=== PATIENT | female | born 1930 | race Caucasian/White ===

== ENCOUNTER → 2016-12-19 | Day surgery (SDC) | payer MEDICARE ==
[~2016-12-19] MED LIST: ASPI1TAB69 PO; BUPIVACAINE LIPOSOME PF 1.3% 20 ML VIAL ONE; CALC1TAB55 PO; CENTTAB PO; CHOL1TAB16 IV; FISH500C PO; FLUR15CA13 PO; FURO20TA PO; LACTATED RINGER'S 1000 ML INJ 1,000 ML ONE; LIDOCAINE 1%/EPINEPHrine 1:100,000 SOLN 20 ML VIAL ONE; MIDAZOLAM HCL 2 MG/2 ML VIAL ONE; NAPR500T PO; NORT10CA PO; OMEP40CA2 PO; PRAV40TA PO; PROPOFOL 500 MG/50 ML BTL IV ONE; REST0.05 EACH EYE; TIMO0.2517 LEFT EYE; TRAM50TA PO; ceFAZolin 2 GM PREMIX 50 ML ONE
--- NOTE | 2016-12-19 12:57 | TN ---
cc: GLORIA MILNER M.D.,LILAI Smallwood MD DATE OF SURGERY 12/19/2016 PREOPERATIVE DIAGNOSIS Right breast atypical ductal hyperplasia. POSTOPERATIVE DIAGNOSIS Right breast atypical ductal hyperplasia. PROCEDURE Right breast needle-localized lumpectomy, hidden scar technique. SURGEON Dr. Zander Marie ANESTHESIA General INDICATIONS This is an 86-year-old woman who had a density seen on mammography that has slightly changed from previous years. She had an ultrasound and ultrasound-guided core biopsy and pathology demonstrated atypical ductal hyperplasia. Recommendations were made for needle-localized lumpectomy. INTRAOPERATIVE FINDINGS Successful removal of an area of concern as confirmed on specimen mammography by Dr. Resendiz. Specimen sent to pathology with a short stitch superior anterior and a long stitch lateral posterior. ESTIMATED BLOOD LOSS Less than 5 mL DESCRIPTION OF PROCEDURE IN DETAIL The patient identified as Brittney Galdamez, taken to the operating room, placed in a supine position. She had undergone right breast needle localization. Sequential compression devices were placed on bilateral lower extremities. Following IV sedation by Anesthesia, the right breast was prepped and draped in the usual sterile fashion with Betadine. A time-out procedure was performed. Following completion of the time-out procedure to everyone's satisfaction within the room, a proposed inferior periareolar incision was made with a marking pen and infiltrated with 1% lidocaine with epinephrine. Incision was carried out with scalpel and hemostasis controlled with electrocautery. Dissection continued posteriorly removing a generous portion of normal-appearing breast tissue around the localization needle tip. The localization needle was divided at the level of the skin, brought into the surgical wound, and the specimen removed in its entirety and marked with silk suture and sent for imaging and then pathology with the above-mentioned findings. The wound was irrigated copiously with saline. Small bleeding points were controlled with electrocautery. Once the wound was assured to be dry, oncoplastic technique was used to decrease the size of the lumpectomy cavity using 3-0 Vicryl sutures. Local anesthetic was placed within the residual cavity and the wound was closed in two layers with 3-0 Vicryl and 4-0 Monocryl. Dressing was applied, Mastisol, half-inch brown Steri-Strips, gauze and Tegaderm. The patient tolerated the procedure without apparent complication. Sponge, needle and instrument counts were correct at the end of the case. MD STEPHEN Stephens/CALVIN /12:45 PM /12:53 PM
== END | disposition home or self-care (01) ==
LOC: ESDC 08:30
PROVIDERS: ATTEND Surgery Trauma Surgery
DX: N60.91 Unspecified benign mammary dysplasia of right breast (principal)
CPT/HCPCS: 00400; 19125; 88307; J0690; J2250; J3010; J7120; C9290

== ENCOUNTER 2018-03-23 12:08 | Inpatient (IN) ==
--- NOTE | 2018-03-18 10:21 | MH ---
cc: Cl Patterson MD DATE OF ADMISSION: 03/23/2018 DATE OF ADMISSION: 03/23/2018 ADMITTING DIAGNOSIS: Osteoarthritic degeneration with valgus deformity, left knee. REASON FOR ADMISSION: Now being admitted for left total knee arthroplasty. HISTORY OF PRESENT ILLNESS: This 87-year-old female is being admitted today for left total knee arthroplasty due to severe painful osteoarthritic degeneration with deformity, left knee. She has been cleared by Primary Care, Cardiology and Urology for her surgery. OTHER PAST HISTORY: Patient has had multiple surgeries on the abdomen with mesh and on her left leg for which she has had veins removed and now has lymphedema, which has been treated. She has a history of anxiety disorder. MEDICATIONS: Currently, she takes acetaminophen, alprazolam, lisinopril, nitrofurantoin, nortriptyline, omeprazole, sertraline, timolol, tramadol, has multiple eyedrops for her eyes. PAST SURGICAL HISTORY: He had hernia repairs, right knee replacement and hip replacement in the past. REVIEW OF SYSTEMS: Noncontributory. FAMILY HISTORY: Noncontributory. SOCIAL HISTORY: She does not smoke or drink. ALLERGIES: ALLERGIC TO VOLTAREN. PHYSICAL EXAMINATION: GENERAL: We find an 87-year-old female, well-developed, well-nourished, and oriented x3, complaining of pain in her left knee. VITAL SIGNS: Blood pressure 136/80, pulse 70 and regular, respirations 18, temperature 98.2, pulse oximetry 96% on room air. HEENT: Eyes PERRLA, EOMI. Ears, nose and mouth clear. NECK: Supple. LUNGS: Clear. HEART: Regular rate. ABDOMEN: Soft, positive bowel sounds, nontender. EXTREMITIES: Reveal her left knee to have 10 degrees valgus deformity, lymphedema. Neurovascularly intact to her toes. IMPRESSION: Severe painful osteoarthritic degeneration, left knee, lymphedema and valgus deformity. PLAN: Admission for left total knee arthroplasty today. The patient understands the procedure well, the risks involved such as the possibility of loss of life, limb, paralysis, infection, phlebitis, dislocation, need for revision, blood transfusion and wants to proceed with surgery. Plans on going to rehabilitation center after surgery for postoperative care. J. MD MATT Amezcua/LAYA , 10:06 AM , 10:20 AM
[~2018-03-23 12:08] MED LIST changes: -ASPI1TAB69 PO; -BUPIVACAINE LIPOSOME PF 1.3% 20 ML VIAL ONE; -CALC1TAB55 PO; -CENTTAB PO; -CHOL1TAB16 IV; -FISH500C PO; -FLUR15CA13 PO; -FURO20TA PO; -LACTATED RINGER'S 1000 ML INJ 1,000 ML ONE; -LIDOCAINE 1%/EPINEPHrine 1:100,000 SOLN 20 ML VIAL ONE; -MIDAZOLAM HCL 2 MG/2 ML VIAL ONE; -NAPR500T PO; -NORT10CA PO; -OMEP40CA2 PO; -PRAV40TA PO; -PROPOFOL 500 MG/50 ML BTL IV ONE; +Phenylephrine/NS 1000 MCG/10ML Syringe IV.PUSH ONE; -REST0.05 EACH EYE; -TIMO0.2517 LEFT EYE; -TRAM50TA PO; -ceFAZolin 2 GM PREMIX 50 ML ONE
[2018-03-23] MEDS ORDERED: Chlorhexidine Gluconate 2% 1 Pack (2 Cloths) TOPICAL SCH (13:15)
[2018-03-23] MEDS ORDERED: Metoprolol Tartrate 25 MG Tablet PO SCH (13:15)
[2018-03-23] MEDS ORDERED: Dexamethasone PF Inj 10 MG/ML Vial ONE (13:26)
[2018-03-23] MEDS ORDERED: Bupivacaine/Dextrose 0.75% Inj 2 ML Ampul ONE (13:26)
[2018-03-23] MEDS ORDERED: Bupivacaine PF 0.25% Inj 30 ML Vial ONE (13:27)
[2018-03-23] MEDS ORDERED: Chlorhexidine 4% Topical 120 APPLIC/120 ML Bottle TOPICAL SCH (13:30)
[2018-03-23] MEDS ORDERED: ceFAZolin 2 GM Premix Inj 2 GM/50 ML PIGGYBACK IV.SIG SCH (13:30)
[2018-03-23] MEDS ORDERED: Dexamethasone Inj 20 MG/5 ML Vial IV.SIG SCH (13:30)
[2018-03-23] MEDS ORDERED: Vancomycin Inj 1 GM/200 ML PIGGYBACK IV.SIG SCH (13:30)
[2018-03-23] MEDS ORDERED: Propofol Inj 500 MG/50 ML Vial ONE (13:41)
[2018-03-23] MEDS ORDERED: Sodium Chlor 0.9% Inj 500 ML IV.SIG SCH (14:00)
[2018-03-23] MEDS ORDERED: TRANEXAMIC ACID IV.SIG SCH ×2 (15:00→18:00)
[2018-03-23] MEDS ORDERED: SODIUM CHLOR 0.9% IV.SIG SCH ×2 (15:00→18:00)
[2018-03-23] MEDS ORDERED: Sodium Chlor 0.9% Inj 80 ML, Bupivacaine Liposo PF 1.3% Inj 20 ML, Bupivacaine PF 0.25%... P-ARTICULR SCH ×3 (15:00)
[2018-03-23] MEDS ORDERED: Tranexamic Acid Inj 1,000 MG in Sodium Chlor 0.9% Inj 100 ML IV.SIG ONE (16:25)
[2018-03-23] MEDS ORDERED: Torsemide 20 MG Tablet PO PRN (17:40)
[2018-03-23] MEDS ORDERED: Bisacodyl 10 MG Supp RECTAL PRN (17:43)
[2018-03-23] MEDS ORDERED: Post-op Orders (for Pharmacy) OTHER STA (17:43)
[2018-03-23] MEDS ORDERED: PT:RESTASIS OPTH SOL EACH EYE SCH (17:45)
--- NOTE | 2018-03-23 17:52 | P.BOP ---
- Preoperative Diagnosis (1) Arthritis - Postoperative Diagnosis (1) Status post total left knee replacement using cement Date of procedure: 03/23/18 Procedure: Left total knee arthroplasty using cement Anesthesia: [facility] Surgeon: Paty Patterson MD Glass Breaker: Suma Rangel Estimated blood loss (mL): 200 Condition: stable Disposition: PACU
[2018-03-23] MEDS ORDERED: fentaNYL Citrate Inj 100 MCG/2 ML Ampul ONE (18:08)
--- NOTE | 2018-03-23 18:26 | XR ---
EXAM DATE: 03/23/2018 6:19 PM EDT AGE/SEX: 87 years / Female INDICATIONS: Post op left total knee replacement. CLINICAL DATA: This is the patient's initial encounter. Patient reports that signs and symptoms have been present for 1 day and indicates a pain score of 1/10. MEDICAL/SURGICAL HISTORY: None. None. COMPARISON: [facility]LI, XR KNEE COMPLETE, LEFT, 10/09/2017. . FINDINGS: The patient is status post total knee replacement. The prosthetic components are well placed. There i s air in the soft tissues and in the knee joint. Vascular calcifications are seen posteriorly. There is a persistent 2.1 x 0.7 cm calcification seen in the suprapatellar region. CONCLUSION: Good placement of a total knee prosthesis. Electronically signed by: Ga Metz MD 03/23/2018 6:25 PM EDT
--- NOTE | 2018-03-23 18:41 | MP ---
cc: Cl Patterson MD DATE OF OPERATION: 03/23/2018 PREOPERATIVE DIAGNOSIS: Osteoarthritic degeneration with valgus deformity, left knee. POSTOPERATIVE DIAGNOSIS: Osteoarthritic degeneration with valgus deformity, left knee. PROCEDURE PERFORMED: Left total knee arthroplasty using Consensus components size 5 femur, 3 tibia, with a 14 insert and a size 2 patella, with 2 batches of antibiotic cement. SURGEON: Cl Patterson MD LENS HARDENER: ELIAS Reyes ANESTHESIA: General intubation block. DESCRIPTION OF PROCEDURE: After successful induction of anesthesia, the patient is placed on the operating room table in the supine position. The knee is prepped and draped in the usual manner. A longitudinal incision is made extending from 3 inches proximal to the superior pole of the patella, across the patella in longitudinal fashion, and down past the insertion of the tibial tubercle into the proximal tibia. The incision is carried down through subcutaneous tissue along the medial aspect of the patella and retinaculum, down through the capsule to expose the knee joint. The patella and patellar tendon are freed up enough to allow the patella to be inverted and retracted off the lateral side of the knee joint. The knee joint is left exposed. Small osteophytes are removed. All soft tissue is removed to allow proper position of the femoral and tibial cutting jig guide. The first femoral jig is then inserted along the distal end of the femur after first measuring to decide whether this is a small, medium, or large component. The notch is then drilled and the tibial cutting guide inserted into the femoral cutting guide, along with the ankle brace to allow for proper measurement of the tibial cutting surface that needed to be resected. Pins are inserted into the tibial cutting jig and femoral cutting jig to hold them in place. An oscillating saw is then used to resect the surface of the tibia. The surface of the tibia is then completely removed using sharp and blunt dissection. The anterior and posterior cuts of the femur are then made as well using an oscillating saw through the cutting guide. All guides are then removed and the varus/valgus angulation cutting guide applied to the femur for proper measurement of the proper amount of valgus. The anterior cutting guide for the femur is then inserted at the anterior femoral cuts made. Next, the first block trial is inserted into the femur to allow for proper condyle drill holes to be made which are then made followed by removal of the bone between the condyles using an oscillating saw as well as the bone removed at the most posterior surface of the condyle. After this, this guide is removed and the chamfer cuts made using the chamfer cutting guide from both anterior and posterior. Next, the femoral trial is then inserted, the tibial surface reflected anterior to expose the tibial surface and a tibial stem guide is inserted after first measuring for a standard, standard plus, large, or large plus surface to be used. After the stem is impacted the trial tibial surface is applied followed by the trial meniscal components. After full range of motion is found with the appropriate length meniscal components varying the patella is prepared by resecting the posterior aspect of the patella using an oscillating saw, inserting a trial. The trial is then removed and the cruciate cutting guide applied using the bur to cut the cruciate cuts. After cruciate cuts are made all trials are removed. The wound is irrigated copiously with antibiotic solution and Water Pik and the actual components inserted into place using the aforementioned components. The cement has hardened and the components are found to have full range of motion with no instability. The wound again is irrigated copiously with antibiotic solution, meticulous hemostasis achieved. Two Autovac tubes inserted, followed by deep fascia approximated with running #2 Quill. Subcutaneous tissue approximated in layers using interrupted and running 2-0 and 4-0 Monocryl suture and a Prineo dressing, knee immobilizer. The patient tolerated the procedure well and left the Operating Room in satisfactory condition. 120 mL of a mixture of Exparel, 0.25% Marcaine plain and normal saline used for extra pain control around the knee. Meticulous hemostasis was achieved. No drain utilized. ESTIMATED BLOOD LOSS: 200 mL. COUNTS: Sponge and suture counts were correct. COMPONENTS: The components used were Consensus components size 5 femur, 3 tibia, with a 14 insert and a size 2 patella, with 2 batches of antibiotic cement. DRAINS: No drain utilized. ADDENDUM ELIAS Reyes, was present during the entire procedure to include patient positioning and the procedure, the medical necessity in nurse practitioner. certified pathology assistant was indicated in this case due to the surgical complexity of the case itself. During the surgical case, the field technical support consultant was working the back table while my research assistant member, ELIAS, was directly assisting me. J. MD JOSE Amezcua , 05:35 PM , 06:40 PM
[2018-03-23] MEDS: Nortriptyline 25 MG Capsule PO SCH (22:55)
[2018-03-23] MEDS: Multivitamin/Minerals Therapeutic Tablet PO SCH (22:56)
[2018-03-23] MEDS: Sertraline 50 MG Tablet PO SCH (22:56)
[2018-03-23] MEDS: Pantoprazole Sodium 20 MG DR Tablet PO SCH (22:57)
[2018-03-23] MEDS: Senna/Docusate Sodium 8.6/50 MG Tablet PO SCH (22:57)
[2018-03-23] MEDS: ALPRAZolam 0.5 MG Tablet PO SCH (22:57)
[2018-03-24] MEDS: Morphine Inj 4 MG/ML Vial IV.PUSH PRN ×4 (01:16→21:05)
[2018-03-24] MEDS: Latanoprost 0.005% Opth Drops 2.5 ML Bottle EACH EYE SCH ×2 (04:10→17:43)
[2018-03-24 05:53] LABS: Hematocrit 36.9 % (35.0-46.0); Hemoglobin 12.3 gm/dL (11.6-15.3)
[2018-03-24] MEDS ORDERED: CALCIUM CARBONATE VITAMIN D3 PO SCH (09:00)
[2018-03-24] MEDS ORDERED: VITAMIN D3 PO SCH (09:00)
[2018-03-24] MEDS ORDERED: Multivitamin/Minerals Therapeutic Tablet PO SCH (09:00)
[2018-03-24] MEDS ORDERED: Non-Formulary Drug (Multivit-Min-Iron-Fa-Lutein [Centrum Silver Women] 1 TAB) PO SCH (09:00)
[2018-03-24] MEDS: Calcium/Vitamin D 250/125 MG Tablet PO SCH ×2 (09:03→20:56)
[2018-03-24] MEDS: ALPRAZolam 0.5 MG Tablet PO SCH ×2 (09:03→20:55)
[2018-03-24] MEDS: Senna/Docusate Sodium 8.6/50 MG Tablet PO SCH ×2 (09:05→20:55)
[2018-03-24] MEDS: Multivitamin/Minerals Therapeutic Tablet PO SCH ×2 (09:05→20:55)
[2018-03-24] MEDS: Timolol 0.25% Drops 5 ML Bottle EACH EYE SCH (09:07)
--- NOTE | 2018-03-24 11:13 | P.PNOP ---
Subjective Interval history: Patient complaining of pain in knee today. She states she did take some morphine to help. Physical Exam Vital signs: Vital Signs 03/23/18 13:30 03/23/18 14:03 03/23/18 18:00 Temperature 98.1 F 97.4 F L Pulse Rate 66 63 83 Respiratory Rate 18 19 Blood Pressure 141/74 H 97/54 L Pulse Oximetry 96 98 99 03/23/18 18:15 03/23/18 18:30 03/23/18 18:45 Temperature Pulse Rate 81 82 80 Respiratory Rate 20 20 17 Blood Pressure 107/59 L 114/70 121/59 L Pulse Oximetry 95 95 95 03/23/18 19:00 03/23/18 19:15 03/23/18 19:30 Temperature Pulse Rate 72 72 75 Respiratory Rate 17 17 21 Blood Pressure 130/64 124/75 122/71 Pulse Oximetry 95 97 98 03/23/18 19:45 03/23/18 20:00 03/23/18 20:15 Temperature 98.5 F Pulse Rate 76 86 86 Respiratory Rate 21 21 21 Blood Pressure 149/76 H 145/71 H 135/65 Pulse Oximetry 98 98 98 03/23/18 20:30 03/23/18 20:45 03/23/18 21:00 Temperature Pulse Rate 86 92 H 90 Respiratory Rate 18 11 L 13 Blood Pressure 136/62 160/68 H 157/58 H Pulse Oximetry 98 92 L 93 L 03/23/18 21:10 03/23/18 21:15 03/24/18 00:00 Temperature 98.9 F 98.6 F Pulse Rate 90 92 H 94 H Respiratory Rate 16 16 Blood Pressure 138/66 130/62 Pulse Oximetry 93 L 91 L 92 L 03/24/18 04:00 03/24/18 08:00 Temperature 97.5 F L 97.4 F L Pulse Rate 92 H 103 H Respiratory Rate 16 18 Blood Pressure 133/64 139/59 L Pulse Oximetry 91 L 91 L Intake & Output 03/23/18 03/24/18 03/24/18 18:59 06:59 18:59 Intake Total 2757.8 / 2757.8 450 / 450 1100 / 1100 Output Total 400 / 400 1375 / 1375 Balance 2357.8 / 2357.8 -925 / -925 1100 / 1100 Weight 78 kg 78.5 kg Intake: IV 357.8 / 357.8 210 / 210 1100 / 1100 LR 1000 mL Inj 1,000 ML @ 80 1000 / 1000 mls/hr IV.CONT .[id number] [facility] Rx# :[id number] Cyklokapron Inj 1,000 MG In NS 107.8 / 107.8 110 / 110 Inj 100 ML @ 200 mls/hr IV.SIG ONCE ONE Rx#:[id number] Vancomycin Inj 1 gm In 200 ml @ 200 / 200 200 mls/hr IV.SIG PROJECT DEVELOPMENT MANAGER [facility] Rx#:[id number] Ancef 2 GM Premix Inj 2 gm In 50 / 50 50 ml @ 100 mls/hr IV.SIG PROJECT DEVELOPMENT MANAGER [facility] Rx#:[id number] Ancef Inj 1,000 MG In NS Inj 100 / 100 100 / 100 100 ML @ 200 mls/hr IV.SIG Q6H [facility] Rx#:[id number] Oral 240 / 240 Anesthesia Amount 2400 / 2400 Output: Urine 750 / 750 Estimated Blood Loss 400 / 400 Urine Amount (Catheter) 625 / 625 Indwelling Urethral Catheter 625 / 625 Other: # Bowel Movements 0 Weight On Admission 78 kg - Constitutional no acute distress - Urinary Catheter Management Indwelling Urethral Catheter Cath placed during this visit: no Reason for continuing: Chronic Urinary Retention Results - Labs CBC & Chem 7: 03/24/18 04:58 Laboratory Results - last 24 hr 03/23/18 03/24/18 13:05 04:58 Hgb 12.3 Hct 36.9 Blood Type O Positive Blood Type Recheck Required Antibody Screen Negative - Imaging Impressions Knee X-Ray 03/23/18 17:43 CONCLUSION: Good placement of a total knee prosthesis. Assessment and Plan - Attending Attestation Attending Attestation: Patient sitting up in chair. Dressing is dry and intact. She is neurovascularly intact to her toes. No calf tenderness. Plan is for the patient to eventually go to a rehab facility. Continue with therapy in the interim.
[2018-03-24] MEDS: Sertraline 50 MG Tablet PO SCH (20:55)
[2018-03-24] MEDS: Pantoprazole Sodium 20 MG DR Tablet PO SCH (20:55)
[2018-03-24] MEDS: Nortriptyline 25 MG Capsule PO SCH (20:56)
[2018-03-25] MEDS: Senna/Docusate Sodium 8.6/50 MG Tablet PO SCH ×2 (08:39→20:20)
[2018-03-25] MEDS: Calcium/Vitamin D 250/125 MG Tablet PO SCH ×2 (08:40→20:20)
[2018-03-25] MEDS: ALPRAZolam 0.5 MG Tablet PO SCH ×2 (08:40→20:20)
[2018-03-25] MEDS: Multivitamin/Minerals Therapeutic Tablet PO SCH ×2 (08:41→20:20)
[2018-03-25 09:48] LABS: Hematocrit 30.6 % (35.0-46.0); Hemoglobin 10.3 gm/dL (11.6-15.3)
[2018-03-25] MEDS: Timolol 0.25% Drops 5 ML Bottle EACH EYE SCH (10:58)
--- NOTE | 2018-03-25 12:10 | P.PNOP ---
Subjective Interval history: patient is complaining of some pain in her left knee today. She has not received her next dose ofpain medication yet. Physical Exam Vital signs: Vital Signs 03/24/18 14:43 03/24/18 16:00 03/24/18 20:00 Temperature 97.4 F L 98.8 F Pulse Rate 75 93 H Respiratory Rate 18 17 18 Blood Pressure 134/62 117/58 L Pulse Oximetry 92 L 93 L 03/25/18 00:00 03/25/18 04:00 03/25/18 08:00 Temperature 98 F 98.5 F 98.4 F Pulse Rate 92 H 90 89 Respiratory Rate 18 20 17 Blood Pressure 133/59 L 133/63 126/59 L Pulse Oximetry 94 L 93 L 90 L Intake & Output 03/24/18 03/25/18 03/25/18 18:59 06:59 18:59 Intake Total 1680 / 1680 360 / 360 Output Total 600 / 600 300 / 300 Balance 1080 / 1080 60 / 60 Weight 78.5 kg Intake: IV 1200 / 1200 LR 1000 mL Inj 1,000 ML @ 80 1000 / 1000 mls/hr IV.CONT .[id number] [facility] Rx# :[id number] Ancef Inj 1,000 MG In NS Inj 200 / 200 100 ML @ 200 mls/hr IV.SIG Q6H [facility] Rx#:[id number] Oral 480 / 480 360 / 360 Output: Urine 600 / 600 Urine Amount (Catheter) 300 / 300 Indwelling Urethral Catheter 300 / 300 Other: Date of Last Bowel Movement 03/22/18 03/22/18 - Constitutional no acute distress - Urinary Catheter Management Indwelling Urethral Catheter Cath placed during this visit: no Reason for continuing: Acute urinary retention Results - Labs CBC & Chem 7: 03/25/18 08:36 Laboratory Results - last 24 hr 03/25/18 08:36 Hgb 10.3 L D Hct 30.6 L Assessment and Plan - Attending Attestation Attending Attestation: dressing is dry and intact. She is neurovascularly intact to her toes and has no Tenderness. The plan is for the patient to get her pain medicine now start physical therapy again and be transferred to inpatient rehabilitation center when bed is available.
[2018-03-25] MEDS: Latanoprost 0.005% Opth Drops 2.5 ML Bottle EACH EYE SCH (19:15)
[2018-03-25] MEDS: Pantoprazole Sodium 20 MG DR Tablet PO SCH (20:20)
[2018-03-25] MEDS: Nortriptyline 25 MG Capsule PO SCH (20:20)
[2018-03-25] MEDS: Sertraline 50 MG Tablet PO SCH (20:20)
[2018-03-26] MEDS: Multivitamin/Minerals Therapeutic Tablet PO SCH (08:56)
[2018-03-26] MEDS: ALPRAZolam 0.5 MG Tablet PO SCH (08:56)
[2018-03-26] MEDS: Calcium/Vitamin D 250/125 MG Tablet PO SCH (08:56)
[2018-03-26] MEDS: Senna/Docusate Sodium 8.6/50 MG Tablet PO SCH (08:56)
[2018-03-26] MEDS: Timolol 0.25% Drops 5 ML Bottle EACH EYE SCH (09:00)
--- NOTE | 2018-03-26 11:13 | P.PNOP ---
Subjective Interval history: Patient feels that she is doing a little bit better today. Physical Exam Vital signs: Vital Signs 03/25/18 12:00 03/25/18 16:00 03/25/18 20:00 Temperature 98.4 F 98.1 F 97.1 F L Pulse Rate 79 79 91 H Respiratory Rate 18 18 17 Blood Pressure 115/64 97/54 L 121/56 L Pulse Oximetry 91 L 94 L 93 L 03/26/18 00:00 03/26/18 04:00 03/26/18 08:00 Temperature 99.0 F 98.3 F 97.9 F Pulse Rate 95 H 89 90 Respiratory Rate 17 17 17 Blood Pressure 115/56 L 119/60 124/61 Pulse Oximetry 93 L 93 L 92 L Intake & Output 03/25/18 03/26/18 03/26/18 18:59 06:59 18:59 Intake Total 750 / 750 850 / 850 Output Total 950 / 950 2300 / 2300 Balance -200 / -200 -1450 / -1450 Weight 79 kg Intake: Oral 750 / 750 850 / 850 Output: Urine 2300 / 2300 Urine Amount (Catheter) 950 / 950 Indwelling Urethral Catheter 950 / 950 Other: Date of Last Bowel Movement 03/22/18 03/22/18 03/22/18 - Constitutional no acute distress - Urinary Catheter Management Indwelling Urethral Catheter Cath placed during this visit: no Reason for continuing: Acute urinary retention Results - Labs CBC & Chem 7: 03/25/18 08:36 Assessment and Plan - Attending Attestation Attending Attestation: Dressing dry and intact. Wound clean and dry. Neurovascularly intact to toes. In bed on CPM at present time. Plan is to go to rehab center today. To office next week.
--- NOTE | 2018-03-26 11:20 | P.DS ---
Date of admission: 03/23/18 17:49 Primary care physician: Elmer Preciado MD Brief History from admission: Patient underwent a left total knee arthroplasty on day of admission. She received a course of prophylactic IV antibiotics and within 23 hours started on anticoagulation therapy. She continued to improve tolerating food and fluid well and was discharged on third postoperative day 2 rehab center in good condition for continuation of care. DS: Diagnosis - Discharge Diagnosis (1) Status post total left knee replacement using cement Status: Acute DS: Medications - Discharge Medications Prescriptions: alprazolam [Xanax] 0.5 mg PO BID 15 Days #30 tab hydrocodone-acetaminophen 1 tab PO Q4H PRN 15 Days #60 tab PRN Reason: Pain, Moderate DS: Summary Hospital Course: See summary - Time Spent with Patient Total time spent providing and/or coordinating discharge services: Greater than 30 minutes - Quality: AMI Clinical Trial Participant: No - Quality: Stroke Reason for No Antithrombin at DC: Treatment not indicated - Quality: VTE Deep Vein Thrombosis/Pulmonary Embolism Present on Admission: No Exam Vital signs: Vital Signs 03/25/18 12:00 03/25/18 16:00 03/25/18 20:00 Temperature 98.4 F 98.1 F 97.1 F L Pulse Rate 79 79 91 H Respiratory Rate 18 18 17 Blood Pressure 115/64 97/54 L 121/56 L Pulse Oximetry 91 L 94 L 93 L 03/26/18 00:00 03/26/18 04:00 03/26/18 08:00 Temperature 99.0 F 98.3 F 97.9 F Pulse Rate 95 H 89 90 Respiratory Rate 17 17 17 Blood Pressure 115/56 L 119/60 124/61 Pulse Oximetry 93 L 93 L 92 L Intake & Output 03/25/18 03/26/18 03/26/18 18:59 06:59 18:59 Intake Total 750 / 750 850 / 850 Output Total 950 / 950 2300 / 2300 Balance -200 / -200 -1450 / -1450 Weight 79 kg Intake: Oral 750 / 750 850 / 850 Output: Urine 2300 / 2300 Urine Amount (Catheter) 950 / 950 Indwelling Urethral Catheter 950 / 950 Other: Date of Last Bowel Movement 03/22/18 03/22/18 03/22/18 Results Procedures completed during hospitalization: Left total knee arthroplasty - Impressions ITS Impressions Knee X-Ray 03/23/18 17:43 CONCLUSION: Good placement of a total knee prosthesis. Discharge Plan - Discharge Disposition Patient Disposition: 62 Rehab Inpatient - Discharge Condition Condition: Good - Discharge Order Discharge Orders: Discharge Order (Routine); Ordered 03/25/18 Ordered By: Paty Patterson - Physicians Team Primary Care Provider: Elmer Preciado Attending Provider: Paty Patterson - Rxs /Orders / Referrals /Forms Prescriptions: New alprazolam [Xanax] 0.5 mg Tablet 0.5 mg PO BID 15 Days Qty: 30 RF: 0 hydrocodone-acetaminophen 7.5-325 mg Tablet 1 tab PO Q4H PRN (Reason: Pain, Moderate) 15 Days Qty: 60 RF: 0 Continue alprazolam [Xanax] 0.5 mg Tablet 0.5 mg PO BID aspirin [Aspir-81] 81 mg Tablet,Delayed Release (Dr/Ec) 81 mg PO DAILY calcium carbonate-vitamin D3 [Caltrate with Vitamin D3] 600 mg(1,500mg) -800 unit Tablet 2 tab PO DAILY cyclosporine [Restasis] 0.05 % Dropperette 1 drp OPHTHALMIC (EYE) Q12H latanoprost 0.005 % Drops 1 drp OPHTHALMIC (EYE) QPM [id number] [Centrum Silver Women] 8 mg iron-400 mcg-300 mcg Tablet 1 tab PO DAILY nortriptyline 25 mg Capsule 50 mg PO HS omeprazole 20 mg Tablet,Delayed Release (Dr/Ec) 20 mg PO HS omeprazole 40 mg Capsule,Delayed Release(Dr/Ec) 40 mg PO DAILY sertraline 50 mg Tablet 1 - 2 tab PO HS timolol 0.25 % Drops 1 drp OPHTHALMIC (EYE) DAILY torsemide 20 mg Tablet 20 mg PO DAILY PRN (Reason: swelling) Discontinued naproxen 500 mg Tablet 1 - 2 tab PO TID PRN (Reason: Pain) tramadol 50 mg Tablet 100 mg PO QID PRN (Reason: Pain) Ambulatory Orders / Order Sets / DME: Adjustable Commode 3-in-1 (1 each) (Routine) Location: Determined by Patient Ordered By: Paty Patterson Walker With Front Wheels (1 each) (Routine) Location: Determined by Patient Ordered By: Paty Patterson CPM - Continuous Passive Motion Machine (1 each) (TID) (1) Location: Determined by Patient Ordered By: Paty Patterson Referrals: Elmer Preciado MD [Primary Care Provider] - See Instructions - Discharge Instructions Patient Printed Instructions: Hydrocodone/Acetaminophen (By mouth), How to Use an Incentive Spirometer (ED), How to Choose and Use a Walker (GEN), Precautions after Total Joint Replacement Surgery (ED), ÁNGEL Hose (DC), Knee Replacement (DC) Additional Instructions: Make or keep your follow up appointments as directed. Do not change surgical dressing, leave it dry and intact. Take medications as directed. Report symptoms of infection to your provider OMAR. - Post Discharge Care Plan Care Plan Goals: Discharge Care Plan Goals for Total Knee Replacement You have undergone knee replacement surgery. Your doctor replaced your painful joint with an artificial joint to relieve pain and restore movement. Here are some goals to help you heal well. Directions to Meet your Goals: 1. Activity & Exercises: * Take pain medicine as directed by your doctor. * Sit in chairs with arms. The arms make it easier for you to stand up or sit down. * Dont sit for more than 30 to 45 minutes at one time. * Nap if you are tired, but dont stay in bed all day. * Sleep with a pillow under your ankle, not your knee. Be sure to change the position of your leg during the night. * Wear the support stockings you were given in the hospital as directed by your surgeon. 2. Prevent Falls/Injury: The baldwin to successful recovery is movement with walking and exercising your knee as directed by your doctor. * Arrange your household to keep the items you need handy. Keep everything else out of the way. * Remove items that may cause you to fall, such as throw rugs and electrical cords. * Use nonslip bath mats, grab bars, an elevated toilet seat, and a shower chair in your bathroom * Sit on a shower stool or chair when you shower to keep from falling. * Until your balance, flexibility, and strength improve, use a cane, crutches, a walker, handrails, or someone to help you. * Keep your hands free by using a backpack, roxanna pack, apron, or pockets to carry things * Walk up and down stairs with support. Try one step at a time. Use the railing if possible. * Dont drive until your doctor says its OK. * Dont drive while you are taking opioid pain medicine. 3. Precautions: * Prevent infection. Any infection will need to be treated immediately. Call your doctor right away if you think you might have an infection. * Tell your dentist that you have an artificial joint and take antibiotics as prescribed before any dental work. * Tell all your healthcare providers about your artificial joint before any medical procedure. * Maintain a healthy weight. Get help to lose any extra pounds. Added body weight puts stress on the knee. * Your medications may include blood-thinning medicine to prevent blood clots or antibiotics to prevent infection-prevent any falls or cuts 4. Incision Care: * Prevent infection by washing your hands often. If an infection occurs, it will need to be treated right away. * Call your doctor right away if you think you may have an infection. Symptoms include a fever or an incision that leaks white, green, or yellow fluid. * Don't soak your incision in water until your doctor says its OK. This means no hot tubs, bathtubs, or swimming pools. * Follow your doctor's instructions for changing the dressing. * Dont rub the incision, or apply creams or lotions to it. * If you notice any redness or drainage around the bandage site, contact your surgeon's office immediately. 5. Follow-Up: Do Not miss your follow-up appointment. Keep up with all your appointments and yearly check ups When to call your doctor: Call your doctor right away if you have: Fever of 100.4F (38C) or higher, or as directed by your doctor Shaking chills Stiffness, or inability to move the knee Increased swelling in your leg Increased redness, tenderness, or swelling in or around the knee incision Drainage from the knee incision Increased knee pain Call 911: Call 911 right away if you have: Chest pain Shortness of breath Any pain or tenderness in your calf
[2018-03-26 16:46] VITALS: BP 113/56; PULSE 89; RESP 18; TEMP 98.1; O2SAT 95
== END 2018-03-26 18:03 ==
LOC: HSDC 12:08 → HSDI 17:49 → N06 21:15
PROVIDERS: ADMIT Surgery; ATTEND Surgery